=== PATIENT | female | born 1985 | race Caucasian/White ===

== ENCOUNTER 2018-11-24 13:29 | Emergency (ER) | payer SELFPAY ==
[~2018-11-24] VITALS: Ht 175.3 cm; Wt 90.0 kg
[2018-11-24 14:40] VITALS: BP 117/54
== END 2018-11-24 14:40 | disposition home or self-care (01) | DRG 563 ==
LOC: ED 13:29
DX: S46.911A Strain of unspecified muscle, fascia and tendon at shoulder and upper arm level, right arm, initial encounter (principal); X50.0XXA Overexertion from strenuous movement or load, initial encounter; M25.511 Pain in right shoulder

== ENCOUNTER 2019-09-12 18:48 | Emergency (ER) | payer SELFPAY ==
[~2019-09-12] VITALS: Ht 175.3 cm; Wt 73.0 kg
[2019-09-12 21:07] VITALS: BP 112/68
== END 2019-09-12 21:15 | disposition home or self-care (01) | DRG 563 ==
LOC: ED 18:48
PROC: 2W3JX1Z Immobilization of Right Finger using Splint (ICD-10-PCS; principal; 2019-09-12)
DX: S63.614A Unspecified sprain of right ring finger, initial encounter (principal); X50.0XXA Overexertion from strenuous movement or load, initial encounter; Y93.89 Activity, other specified; Y92.009 Unspecified place in unspecified non-institutional (private) residence as the place of occurrence of the external cause

== ENCOUNTER 2021-01-25 16:56 | Emergency (ER) | payer OTHER ==
[2021-01-25 19:10] VITALS: BP 132/72
== END 2021-01-25 19:24 | disposition home or self-care (01) ==
LOC: ED 16:56
DX: O9A.212 Injury, poisoning and certain other consequences of external causes complicating pregnancy, second trimester (principal); S90.32XA Contusion of left foot, initial encounter; W20.8XXA Other cause of strike by thrown, projected or falling object, initial encounter; Y92.009 Unspecified place in unspecified non-institutional (private) residence as the place of occurrence of the external cause; Z3A.25 25 weeks gestation of pregnancy